=== PATIENT | male | born 1945 | race Hispanic/Latino ===

== ENCOUNTER 2020-05-08 10:36 | Emergency (ER) | payer SELFPAY ==
[~2020-05-08] VITALS: Ht 154.9 cm; Wt 80.0 kg
[~2020-05-08 10:36] MED LIST: LORTAB 5 OR; NO MEDS
[2020-05-08] MEDS ORDERED: FAMCICLOVIR500 MG PO (11:23)
[2020-05-08] MEDS ORDERED: KEFLEX500 MG PO (11:23)
[2020-05-08] MEDS ORDERED: ZOVIRAX51 EX (11:23)
[2020-05-08 11:49] VITALS: BP 134/76
== END 2020-05-08 11:49 | disposition home or self-care (01) | DRG 596 ==
LOC: ED 10:36
DX: B02.9 Zoster without complications (principal)

== ENCOUNTER 2020-11-07 19:18 | Emergency (ER) | payer SELFPAY ==
[~2020-11-07] VITALS: Ht 154.9 cm; Wt 80.0 kg
[~2020-11-07 19:18] MED LIST changes: +FAMCICLOVIR500 MG PO; +KEFLEX500 MG PO; +ZOVIRAX51 EX
[2020-11-07 20:00] LABS: HEMATOCRIT 31.2 % (39.0-50.0); HEMOGLOBIN 10.5 g/dl (14.0-18.0); IMMATURE GRANULOCYTES 0.2 % (0.0-5.0); MEAN CELL VOLUME 94.3 fL CALC (80.0-100.0); MEAN CORPUSCULAR HGB 31.7 pG CALC (26.0-32.0); MEAN CORPUSCULAR HGB CONC 33.7 g/dL CAL (32.0-36.0); NEUT# 2.32 thou/uL (1.82-7.42); RED BLOOD COUNT 3.31 mill/uL (4.70-6.10); RED CELL DISTRI WIDTH 14.8 % (11.5-15.5)
[2020-11-07 20:23] LABS: ALBUMIN 3.8 g/dL (3.2-5.0); ALKALINE PHOSPHATASE 173 u/l (38-126); ANION GAP 16 (6-22 (CALC)); BILIRUBIN, TOTAL 0.6 mg/dL (0.0-1.4); BUN 7 mg/dL (8-23); BUN/CREATININE RATIO 12 (12-20 (CALC)); CARBON DIOXIDE 26 mmol/l (22-30); CHLORIDE 100 mmol/l (95-108); CREATININE 0.6 mg/dL (0.7-1.3); GFR > 60 ML/MIN (>=60 (CALC)); GFR FOR AFR.AMER. > 60 ML/MIN (>=60 (CALC)); POTASSIUM 3.7 mmol/l (3.5-5.1); SGOT/AST 127 u/l (19-48); SODIUM 138 mmol/l (137-146); TOTAL PROTEIN 7.5 g/dL (6.3-8.2)
[2020-11-07 20:31] LABS: ETHYL ALCOHOL 388 mg/dl (0-30)
[2020-11-07 20:33] LABS: MYOGLOBIN 55 ng/mL (0 - 121)
[2020-11-07 20:41] LABS: URINE BILIRUBIN - DIPSTICK NEGATIVE (NEGATIVE); URINE BLOOD DIPSTICK NEGATIVE (NEGATIVE); URINE COLOR YELLOW; URINE GLUCOSE - DIPSTICK NEGATIVE (NEGATIVE); URINE KETONE NEGATIVE (NEGATIVE); URINE LEUK ESTERASE NEGATIVE (NEGATIVE); URINE PH 5.5 (4.5-8.0); URINE PROTEIN - DIPSTICK NEGATIVE (NEG-TRACE); URINE SPECIFIC GRAVITY <=1.005; URINE UROBILINOGEN - DIPSTICK 0.2 E.U./dL (0.2)
[2020-11-07 20:42] LABS: URINE NITRITE - DIPSTICK NEGATIVE (Negative)
[2020-11-08 06:41] VITALS: BP 146/79
== END 2020-11-08 06:42 | disposition home or self-care (01) | DRG 897 ==
LOC: ED 19:18
PROVIDERS: Family Medicine
DX: F10.129 Alcohol abuse with intoxication, unspecified (principal)

== ENCOUNTER 2022-12-25 16:01 | Emergency (ER) | payer SELFPAY ==
[~2022-12-25] VITALS: Ht 154.9 cm; Wt 63.6 kg
[2022-12-25 16:58] LABS: BASO% 1.1 % (0-3); EOS% 9.3 % (0-8); HEMATOCRIT 29.4 % (39.0-50.0); HEMOGLOBIN 9.4 g/dl (14.0-18.0); IMMATURE GRANULOCYTES 0.4 % (0.0-5.0); LYMPH% 34.8 % (15-41); MEAN CORPUSCULAR HGB 31.3 pG CALC (26.0-32.0); MONO% 7.3 % (2-13); NEUT# 2.52 thou/uL (1.82-7.42); NEUT% 47.1 % (42-76); RED CELL DISTRI WIDTH 14.3 % (11.5-15.5)
[2022-12-25 17:12] LABS: ALBUMIN 3.6 g/dL (3.2-5.0); ALKALINE PHOSPHATASE 239 u/l (38-126); BILIRUBIN, TOTAL 0.6 mg/dL (0.2-1.3); BUN 6 mg/dL (8-23); BUN/CREATININE RATIO 8 (12-20 (CALC)); CHLORIDE 104 mmol/l (95-108); CREATININE 0.8 mg/dL (0.7-1.3); ETHYL ALCOHOL 222 mg/dl (0-30); GFR FOR AFR.AMER. > 60 ML/MIN (>=60 (CALC)); GFR OTHER RACES > 60 ML/MIN (>=60 (CALC)); POTASSIUM 3.6 mmol/l (3.5-5.1); SGOT/AST 118 u/l (19-48); SODIUM 135 mmol/l (137-146); TOTAL PROTEIN 7.8 g/dL (6.3-8.2)
[2022-12-25 17:13] LABS: ANION GAP 16 (6-22 (CALC)); CARBON DIOXIDE 19 mmol/l (22-30)
[2022-12-26 00:34] VITALS: BP 107/76
== END 2022-12-26 01:20 | disposition home or self-care (01) | DRG 552 ==
LOC: ED 16:01
PROVIDERS: Family Medicine
DX: M54.50 Low back pain, unspecified (principal); F10.129 Alcohol abuse with intoxication, unspecified; Y90.7 Blood alcohol level of 200-239 mg/100 ml